=== PATIENT | male | born 1980 | race African-American/Black ===

== ENCOUNTER → 2016-12-14 | Emergency (ER) | payer OTHER ==
[2016-12-14 23:26] VITALS: BP 111/70
== END ==
LOC: ED 21:23
DX: L03.211 Cellulitis of face (principal); S02.5XXA Fracture of tooth (traumatic), initial encounter for closed fracture; S06.9X0A Unspecified intracranial injury without loss of consciousness, initial encounter; X58.XXXA Exposure to other specified factors, initial encounter; Y93.89 Activity, other specified; Y99.8 Other external cause status; Y92.89 Other specified places as the place of occurrence of the external cause